=== PATIENT | male | born 1955 | race Caucasian/White ===

== ENCOUNTER 2016-06-30 14:19 | Emergency (ER) | payer OTHER | END 2016-06-30 18:10 | disposition home or self-care (01) | LOC: ER1 14:19 | DX: N43.3 Hydrocele, unspecified (principal); F17.210 Nicotine dependence, cigarettes, uncomplicated | CPT/HCPCS: 76870; 81001; 87086; 99284 ==

== ENCOUNTER 2020-05-01 19:19 | Emergency (ER) | payer OTHER ==
[~2020-05-01 19:19] MED LIST: CYCLOBENZAPRINE5 MG PO; MOBIC15 MG PO
[2020-05-02 01:08] LABS: HEMOGLOBIN 15.3 gm/dl (14.0-17.5); RED BLOOD COUNT 4.97 M/UL (4.20-5.50); WHITE BLOOD COUNT 6.5 K/UL (4.5-11.0)
[2020-05-02 01:24] LABS: BUN/CREATININE RATIO 14 (0-10)
== END 2020-05-02 08:06 | disposition home or self-care (01) ==
LOC: ER1 19:19
PROVIDERS: Emergency Medicine
DX: R55 Syncope and collapse (principal); R51.9 Headache, unspecified; I10 Essential (primary) hypertension; R53.1 Weakness; Z87.891 Personal history of nicotine dependence
CPT/HCPCS: 70450; 70496; 71045; 80053; 81001; 82550; 82553; 83605; 83690; 84484; 85025; 85379; 85610; 85730; 93005; 99284; Q9967

== ENCOUNTER → 2020-08-06 | Outpatient (CLI) | payer OTHER | LOC: KOH-I 14:08 | DX: M14.672 Charcot's joint, left ankle and foot (principal) | CPT/HCPCS: 73610; 73630 ==